=== PATIENT | female | born 1985 | race Caucasian/White ===

== ENCOUNTER 2016-11-14 20:20 | Emergency (ER) | payer BC, OTHER ==
[2016-11-14 20:21] VITALS: BMI 29.7
[2016-11-14 20:39] VITALS: BP 125/82; PULSE 59; TEMP 98; O2SAT 100
--- NOTE | 2016-11-14 21:05 | C.PDOC ---
History Of Present Illness 31 y/o female presents to the ED with complains of rectal pain since yesterday. Pt with history of hemorrhoids, but states this one feels bigger than usual, more painful. Pt was evaluated by PMD who instructed come to ED for further evaluation. Pt denies bloody stools, abdominal pain, fever or any other complaints. Time Seen by Provider: 11/14/16 20:42 Chief Complaint (Nursing): Abnormal Skin Integrity History Per: Patient History/Exam Limitations: no limitations Onset/Duration Of Symptoms: Hrs Current Symptoms Are (Timing): Still Present Quality Of Symptoms: Painful Severity: Moderate Recent travel outside of the [place]: No Past Medical History Reviewed: Historical Data, Nursing Documentation, Vital Signs Vital Signs: Last Vital Signs Temp 98.0 F 11/14/16 20:34 Pulse 59 L 11/14/16 20:34 Resp 20 11/14/16 22:52 BP 125/82 11/14/16 20:34 Pulse Ox 100 11/15/16 02:09 Family History: States: Unknown Family Hx - Social History Hx Alcohol Use: No Hx Substance Use: No - Immunization History Hx Influenza Vaccination: Yes Review Of Systems Except As Marked, All Systems Reviewed And Found Negative. Constitutional: Negative for: Fever, Chills Gastrointestinal: Positive for: Rectal Pain. Negative for: Abdominal Pain, Hematochezia Physical Exam - Physical Exam Appears: Non-toxic, No Acute Distress Skin: Warm, Dry, No Rash Head: Atraumatic, Normacephalic Eye(s): bilateral: Normal Inspection, EOMI Nose: Normal Oral Mucosa: Moist Chest: Symmetrical Respiratory: No Accessory Muscle Use Gastrointestinal/Abdominal: Normal Exam, Soft, No Tenderness Rectal: Hemorrhoids (2 cm pink/blue external hemmorhoid with tenderness) Back: No CVA Tenderness, No Vertebral Tenderness Extremity: Bilateral: Atraumatic Neurological/Psych: Oriented x3, Normal Speech ED Course And Treatment O2 Sat by Pulse Oximetry: 100 (room air) Pulse Ox Interpretation: Normal Progress Note: Tramadol and Lidocaine ordered. 2100 paged manager surgical. Discussed case with Dr. Mary, manager surgical, who saw and evaluated patient at bedside; he stated that the hemorrhoid was not thrombosed, instructed to continue with topical treatment. Disposition - Disposition Referrals: Raghavendra Brown MD [Staff Provider] - Disposition: HOME/ ROUTINE Disposition Time: 21:00 Condition: STABLE Additional Instructions: Warm sitz bathes three times a day. High fiber diet and lots of fluids. Follow up with referral in 1-2 days. Prescriptions: Docusate [Colace] 100 mg PO BID #14 cap Lidocaine 2% [Xylocaine 2%] 1 appl TP DAILY PRN #1 tube PRN Reason: Pain, Mild (1-3) Instructions: Hemorrhoids (ED) - Clinical Impression Clinical Impression: External hemorrhoid - PA / INSTRUMENT INSTALLER / Resident Statement MD/DO has reviewed & agrees with the documentation as recorded. - Scribe Statement The provider has reviewed the documentation as recorded by the Fili Mendoza All medical record entries made by the [employer] were at my direction and personally dictated by me. I have reviewed the chart and agree that the record accurately reflects my personal performance of the history, physical exam, medical decision making, and the department course for this patient. I have also personally directed, reviewed, and agree with the discharge instructions and disposition.
[2016-11-14] MEDS ORDERED: Lidocaine 2% Jelly (Uro-Jet) TOP ONE (21:34)
[2016-11-14] MEDS ORDERED: Lidocaine 2% Jelly (Uro-Jet) ONE (21:56)
[2016-11-14 22:53] VITALS: RESP 20
--- NOTE | 2016-11-14 23:11 | CP.PCM.CON ---
History of Present Illness - History of Present Illness History of Present Illness: Surgery: Dr. Brown CC: Hemorrhoid HPI: 31F w. PMH of hemorrhoid presents to ED w. rectal pain x 2 days. Pt states that she has been having diarrhea over the past few days and noticed a hemorrhoid that had become very painful. She denies any blood in stool. She has no abd pain. No F/C and no N/V. She states that she was applying preparation H to the hemorrhoid and it provided some relief. She has no other complaints at this time PMH: hemorrhoids PSH: tonsils Meds: colace NKDA SOcial: No ETOH/tobacco/drugs Fhx: non-contributory Review of Systems - Review of Systems All systems: reviewed and no additional remarkable complaints except (hpi) Past Patient History - Past Social History Smoking Status: Never Smoked - GENITOURINARY/GYNECOLOGICAL Hx Genitourinary Disorders: Yes Other/Comment: pre-eclampsia - PSYCHIATRIC Hx Substance Use: No - SURGICAL HISTORY Hx Surgeries: Yes Other/Comment: breast augmentation - ANESTHESIA Hx Anesthesia: Yes Hx Anesthesia Reactions: No Meds Home Medications: Home Medication List Medication Instructions Recorded Confirmed Type Docusate [Colace] 100 mg PO BID #14 cap 11/14/16 Rx Lidocaine 2% [Xylocaine 2%] 1 appl TP DAILY PRN #1 tube 11/14/16 Rx Allergies/Adverse Reactions: Allergies Allergy/AdvReac Type Severity Reaction Status Date / Time artificial sweetners Allergy Uncoded 11/14/16 20:39 Physical Exam - Constitutional Appears: Non-toxic, No Acute Distress - Head Exam Head Exam: ATRAUMATIC, NORMOCEPHALIC - Eye Exam Eye Exam: EOMI - ENT Exam ENT Exam: Mucous Membranes Moist, Normal External Ear Exam - Neck Exam Neck exam: Positive for: Full Rom - Respiratory Exam Respiratory Exam: NORMAL BREATHING PATTERN. absent: Accessory Muscle Use, Respiratory Distress - GI/Abdominal Exam GI & Abdominal Exam: Soft. absent: Tenderness - Rectal Exam Additional comments: 2x1 cm hemorrhoid R side, firm, tender to palpation, pink in color, no clot or bleeding noted Nurse present for exam - Extremities Exam Extremities exam: Negative for: calf tenderness, pedal edema - Neurological Exam Neurological exam: Alert, Oriented x3 Results - Vital Signs Recent Vital Signs: Last Vital Signs Temp 98.0 F 11/14/16 20:34 Pulse 59 L 11/14/16 20:34 Resp 20 11/14/16 22:52 BP 125/82 11/14/16 20:34 Pulse Ox 100 11/14/16 21:08 Assessment & Plan - Assessment and Plan (Free Text) Assessment: 31F w. hemorrhoid -Lidocaine jelly -colace 100mg TID -Sitz baths TID -f/u w. Dr. Brown in office -d/w attending Zemaitis PGY2
== END 2016-11-14 22:52 | disposition home or self-care (01) ==
LOC: C.ER 20:20
DX: K64.4 Residual hemorrhoidal skin tags (principal)